=== PATIENT | female | born 1965 | race Caucasian/White ===

== ENCOUNTER 2023-06-12 15:50 | Emergency (ER) | payer BC, SELFPAY ==
[2023-06-12] VITALS (7 sets, daily range): BP systolic 119–157; BP diastolic 80–86; PULSE 51–67; RESP 16; TEMP 36.6; O2SAT 94–98; BMI 30.9
--- NOTE | 2023-06-12 16:41 | ED.GENADULT ---
HPI - General Adult General Date Seen: 06/12/23 Chief complaint: Dizziness/Vertigo Stated complaint: Needs O2 checked Time Seen by Provider: 06/12/23 16:31 Source: patient Mode of arrival: ambulatory Limitations: no limitations History of Present Illness HPI narrative: Patient is a 57-year-old woman who comes in because of concerns about exposure to gas. 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 She says she normally keeps her window cracked open in her vehicle, but today she forgot because it was hot and humid. She says she was driving and then she realized that she had for gotten to hold on her window, she started to feel lightheaded, tingly, and like it was difficult to swallow. She became concerned about inhaled gases like carbon monoxide and thought she better get checked out before she continued on to [place]. She is feeling better now. Related Data Allergies Allergy/AdvReac Type Severity Reaction Status Date / Time No Known Drug Allergies Allergy Verified 06/12/23 16:07 Review of Systems Status of ROS: Reports: 6 or more systems reviewed and unremarkable except as noted in History and below PFSH PFS Social History Smoking Status: Never smoker Do you use any of these nicotine containing products: None Second hand tobacco smoke exposure: No How often do you have a drink containing alcohol: never How often do you have six or more drinks on one occasion: Never AUDIT-C Alcohol total score: 0 Non-prescribed substance use: denies use service: No Exam Narrative: Exam Narrative: Vital signs as noted above. In general, an alert, well-appearing patient. Head: Normocephalic, atraumatic. Eyes: Pupils are equal reactive. Extraocular movements are full. Conjunctivae are normal. ENT: Mucous membranes are moist. Throat is normal. Neck: Supple without lymphadenopathy. Heart: Regular rate and rhythm. No murmur or rub. Lungs: Clear bilaterally. No increased work of breathing, crackles or wheezes. Abdomen: Soft and nontender. No organomegaly. Extremities: Well perfused. No edema. No calf tenderness. Pulses intact. Neurologic: Patient is alert and oriented to person and place. Speech is fluent. Face is symmetric. Moves all extremities equally. Affect: Normal. Skin: Warm and dry. Well perfused. Const: Vital Signs, click to edit/add: Vital Signs - 24 hr 06/12/23 16:08 06/12/23 16:21 06/12/23 16:22 Temperature 98 F Pulse Rate 67 65 Pulse Rate [Pulse Oximeter] 61 Respiratory Rate 16 Blood Pressure 145/82 H Blood Pressure [Ri ght Upper Arm] 157/86 H Pulse Oximetry 98 98 97 Oxygen Delivery Me thod Room Air 06/12/23 16:30 06/12/23 16:32 06/12/23 16:45 Temperature Pulse Rate 59 L 58 L 56 L Pulse Rate [Pulse Oximeter] Respiratory Rate Blood Pressure 119/80 Blood Pressure [Ri ght Upper Arm] Pulse Oximetry 95 95 94 Oxygen Delivery Me thod 06/12/23 17:02 Temperature Pulse Rate 51 L Pulse Rate [Pulse Oximeter] Respiratory Rate Blood Pressure Blood Pressure [Ri ght Upper Arm] Pulse Oximetry 95 Oxygen Delivery Me thod Documenting provider has reviewed patient's vital signs: yes Course Course Hospital Course: Discussed that dry ice in mitts carbon dioxide, not carbon monoxide, and now that she is breathing regular air, her body will naturally reset. Will keep an eye on here for a few minutes here and make sure she is feeling okay to drive and that I think it is reasonable to discharge. Vital Signs Vital signs: Initial Vital Signs Temperature 98 F 06/12/23 16:08 Temperature Source Temporal Artery Scan 06/12/23 16:08 Pulse Rate 61 06/12/23 16:08 Pulse Rhythm Regular 06/12/23 16:08 Respiratory Rate 16 06/12/23 16:08 Blood Pressure 157/86 H 06/12/23 16:08 Blood Pressure Mean 109 H 06/12/23 16:08 Blood Pressure Position Sitting 06/12/23 16:08 Pulse Oximetry 98 06/12/23 16:08 Oxygen Delivery Method Room Air 06/12/23 16:08 Vital Signs Temperature 98 F 06/12/23 16:08 Pulse Rate 61 06/12/23 16:08 Respiratory Rate 16 06/12/23 16:08 Blood Pressure 157/86 H 06/12/23 16:08 Pulse Oximetry 98 06/12/23 16:08 Oxygen Delivery Method Room Air 06/12/23 16:08 Temperature 98 F 06/12/23 16:08 Pulse Rate 51 L 06/12/23 17:02 Respiratory Rate 16 06/12/23 16:08 Blood Pressure 119/80 06/12/23 16:32 Pulse Oximetry 95 06/12/23 17:02 Oxygen Delivery Method Room Air 06/12/23 16:08 Discharge Plan Discharge Clinical Impression: Lightheadedness Patient Disposition: Home, Self-Care Condition: Improved Instructions: Lightheadedness (ED) Stand Alone Forms: MyHealth Info Instructions
== END 2023-06-12 17:14 | disposition home or self-care (01) ==
PROVIDERS: Emergency Provider Emergency Medicine
DX: R42 Dizziness and giddiness (principal); T59.7X4A Toxic effect of carbon dioxide, undetermined, initial encounter
CPT/HCPCS: 99282; 99284